=== PATIENT | male | born 1960 | race Two or more races ===

== ENCOUNTER 2024-03-12 11:43 | Emergency (ER) | payer MEDICAID, OTHER ==
[~2024-03-12] VITALS: Ht 157.5 cm; Wt 72.3 kg
[2024-03-12 12:39] VITALS: BP 173/96; PULSE 82; RESP 16; TEMP 98; O2SAT 97
[2024-03-12] MEDS ORDERED: IBUP-1456 PO (12:47)
[2024-03-12] MEDS ORDERED: CEPH500C PO (12:47)
[2024-03-12] MEDS: ACETAMINOPHEN 500 MG TAB PO ONE (12:55)
== END 2024-03-12 13:02 | disposition home or self-care (01) ==
LOC: ER 11:43
DX: D17.79 Benign lipomatous neoplasm of other sites (principal); L08.89 Other specified local infections of the skin and subcutaneous tissue; Z79.899 Other long term (current) drug therapy